=== PATIENT | female | born 1965 | race African-American/Black ===

== ENCOUNTER 2016-05-18 19:12 | Emergency (ER) | payer OTHER ==
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
[~2016-05-18 19:12] MED LIST: CLEOCIN HCL300 M1 PO; KEFLEX PO; LORTAB 5/500 TA1 TA1 PO; MEDROL DOSEPAK4 MG DOB
== END 2016-05-18 19:30 | disposition home or self-care (01) ==
LOC: CFTX 19:12
DX: S39.012A Strain of muscle, fascia and tendon of lower back, initial encounter (principal); I10 Essential (primary) hypertension; V43.52XA Car driver injured in collision with other type car in traffic accident, initial encounter; Y92.410 Unspecified street and highway as the place of occurrence of the external cause
CPT/HCPCS: 72040; 72100; 99284